=== PATIENT | female | born 1985 | race Caucasian/White ===

== ENCOUNTER 2017-01-24 13:50 | Emergency (ER) | payer MEDICAID ==
[~2017-01-24] VITALS: Ht 162.6 cm; Wt 54.4 kg
[~2017-01-24 13:50] MED LIST: IBUP-1482 PO; OXYC-34 PO
--- NOTE | 2017-01-24 13:55 | NUR ---
dr tesfaye at the bedside for eval and exam.
--- NOTE | 2017-01-24 14:01 | NUR ---
urine collected and sent to lab.
[2017-01-24 14:18] LABS: *BILIRUBIN,URIN NEGATIVE (NEGATIVE); *BLOOD, URINE Trace-intact (NEGATIVE); *CLARITY,URINE CLEAR (CLEAR); *COLOR,URINE YELLOW (YELLOW); *KETONES,URINE NEGATIVE (NEGATIVE); *PROTEIN,URINE 1+ (NEGATIVE); *UROBILINOGEN,URINE 0.2 E.U./dl (NORMAL); LEUKOCYTE ESTERASE ,URINE 1+ (NEGATIVE); NITRITE, URINE NEGATIVE (NEGATIVE); UGLUCOSE NEGATIVE (NEGATIVE)
[2017-01-24 14:27] LABS: *URINE HCG, QUAL NEGATIVE (NEGATIVE); BACTERIA,URINE FEW /HPF (NONE SEEN); MUCUS,URINE FEW /LPF (0-FEW); RBC,URINE 0-3 /HPF (0-3); SQUAMOUS EPITHELIAL CELL,UR MODERATE /HPF (NONE SEEN); WBC,URINE 20-50 /HPF (0-3)
--- NOTE | 2017-01-24 14:54 | NUR ---
Patient discharged to home in stable conditon. Written and verbal after care instructions given. Patient verbalizes understanding of instructions.PT WALKS IN STEADY GAIT.
== END 2017-01-24 14:55 | disposition home or self-care (01) ==
LOC: ER 13:50
DX: N39.0 Urinary tract infection, site not specified (principal); F41.9 Anxiety disorder, unspecified; I10 Essential (primary) hypertension; F10.20 Alcohol dependence, uncomplicated; Z88.0 Allergy status to penicillin; Z88.1 Allergy status to other antibiotic agents
CPT/HCPCS: 84703; A4663

== ENCOUNTER 2018-03-16 03:02 | Emergency (ER) | payer MEDICAID, OTHER ==
[~2018-03-16] VITALS: Ht 162.6 cm; Wt 52.2 kg
[~2018-03-16 03:02] MED LIST changes: -IBUP-1482 PO; +IBUP800T54 PO; +OXYC-133 PO; -OXYC-34 PO
--- NOTE | 2018-03-16 04:00 | NUR ---
Dr. Cortez at bedside for MSE.
[2018-03-16] MEDS ORDERED: ONDANSETRON ODT 4 MG TAB.RAPDIS SL ONE (04:15)
[2018-03-16] MEDS ORDERED: HYDROCODONE/APAP 5-325MG TABLET PO ONE (04:15)
--- NOTE | 2018-03-16 04:20 | NUR ---
Pt became emotional and started crying. notified.
[2018-03-16] MEDS ORDERED: HYDROCODONE/APAP 5-325MG TABLET ONE (04:29)
[2018-03-16] MEDS ORDERED: ONDANSETRON ODT 4 MG TAB.RAPDIS ONE ×2 (04:29→04:30)
[2018-03-16] MEDS ORDERED: LORAZEPAM 2 MG/1 ML VIAL IM ONE (04:30)
[2018-03-16] MEDS ORDERED: LORAZEPAM 2 MG/1 ML VIAL ONE (04:34)
--- NOTE | 2018-03-16 04:38 | NUR ---
Patient out of ER for CT.
--- NOTE | 2018-03-16 04:50 | NUR ---
Pt back to ER from CT.
--- NOTE | 2018-03-16 06:30 | NUR ---
Pt given discharge instructions, but still too drowsy for discharge.
--- NOTE | 2018-03-16 08:16 | NUR ---
pt was d/c to home. d/c instructions given to the pt by dr olguin.
[2018-03-16 08:17] VITALS: BP 122/69
== END 2018-03-16 08:23 | disposition home or self-care (01) ==
LOC: ER 03:07
DX: S13.4XXA Sprain of ligaments of cervical spine, initial encounter (principal); S09.90XA Unspecified injury of head, initial encounter; F41.9 Anxiety disorder, unspecified; I10 Essential (primary) hypertension; Z88.0 Allergy status to penicillin; Z88.1 Allergy status to other antibiotic agents; F12.10 Cannabis abuse, uncomplicated; Z79.1 Long term (current) use of non-steroidal anti-inflammatories (NSAID); Z79.891 Long term (current) use of opiate analgesic; W01.0XXA Fall on same level from slipping, tripping and stumbling without subsequent striking against object, initial encounter; Y93.89 Activity, other specified; Y92.89 Other specified places as the place of occurrence of the external cause; Y99.8 Other external cause status
CPT/HCPCS: 70450; 72125; 96372; 99284; A4663; J2060; Q0162 ×2